=== PATIENT | female | born 1955 | race Caucasian/White ===

== ENCOUNTER → 2018-05-13 | Outpatient (CLI) | payer OTHER ==
--- NOTE | 2018-05-13 14:25 | RAD ---
Abdominal ultrasound, 05/13/2018: HISTORY: Chronic hepatitis C The gallbladder is within normal limits in size. It contains several prominent echogenic foci with posterior acoustic shadowing compatible with gallstones. At least one of these calculi is located in the gallbladder neck. The gallbladder ochoa are not thickened. The common hepatic duct is mildly prominent measuring 7 mm. This is of doubtful significance as the common bile duct is of normal size measuring 5-6 mm and no intrahepatic bile duct dilatation is evident. The liver measures 17 cm in craniocaudad extent at the level of the right lobe. No hepatic mass is evident. No pancreatic abnormality is detected. The spleen is unremarkable measuring 9 cm in length. No renal abnormality is detected.. The abdominal aorta and inferior vena cava show no abnormality. IMPRESSION: 1. Cholelithiasis. 2. Mild prominence of the common hepatic duct. Electronically signed by: South Hughes MD (05/13/2018 2:22 PM) [facility]
== END | disposition home or self-care (01) ==
LOC: US 07:46
PROVIDERS: ATTEND Family Medicine
DX: K80.80 Other cholelithiasis without obstruction (principal)
CPT/HCPCS: 76700